=== PATIENT | female | born 1950 | race African-American/Black ===

== ENCOUNTER 2022-09-20 13:25 | Inpatient (IN) | payer OTHER ==
[~2022-09-20] VITALS: Ht 185.4 cm; Wt 72.8 kg
[2022-09-20] MEDS ORDERED: ISOVUE-370 76% 100ML VIAL As Ordered ONE (13:59)
[2022-09-20 14:05] LABS: BASO % 0.4 % (0.0-1.0); EOS # 0.1 10^3/uL (0.0-0.5); EOS % 2.5 % (0.0-3.0); HEMATOCRIT 38.3 % (36.0-47.0); HEMOGLOBIN 12.3 g/dl (12.0-15.5); LYMPH # 1.8 10^3/uL (1.5-5.0); LYMPH % 35.2 % (24.0-44.0); MEAN CORPUSCULAR HGB CONC 32.1 g/dl (32.0-36.5); MONO # 0.5 10^3/uL (0.0-0.8); MONO % 10.1 % (2.0-8.0); NEUTROPHILS # 2.7 10^3/uL (1.5-8.5); NEUTROPHILS % 51.4 % (36.0-66.0); PLATELET COUNT, AUTOMATED 215 10^3/uL (150-450); WHITE BLOOD COUNT 5.2 10^3/uL (4.0-10.0)
[2022-09-20 14:16] LABS: INR 0.92; PROTHROMBIN TIME 12.6 SECONDS (12.5-14.5)
[2022-09-20 14:17] LABS: PARTIAL THROMBOPLASTIN TIME 26.5 SECONDS (24.8-34.2)
[2022-09-20 14:34] LABS: BLOOD UREA NITROGEN 14 MG/DL (9-23); CALCIUM LEVEL 9.1 MG/DL (8.3-10.6); CARBON DIOXIDE LEVEL 34 MMOL/L (20-31); CHLORIDE LEVEL 101 MMOL/L (98-107); CK-MB VALUE MASS < 1.0 NG/ML (<3.6); CPK CREATINE PHOSPHOKINASE 135 U/L (34-145); CREATININE FOR GFR 1.01 MG/DL (0.55-1.30); GLOMERULAR FILTRATION RATE 57.2 (>39); GLUCOSE, FASTING 76 MG/DL (74-106); MB/CK RELATIVE INDEX 0.74 (< OR =4); POTASSIUM SERUM 4.1 MMOL/L (3.5-5.1); SODIUM LEVEL 139 MMOL/L (136-145)
[2022-09-20] MEDS ORDERED: ACET1TAB55 PO (15:20)
[2022-09-20] MEDS ORDERED: LOSA25TA13 PO (15:20)
[2022-09-20] MEDS ORDERED: ROSU10TA6 PO (15:20)
[2022-09-20] MEDS ORDERED: ECOT81TA5 PO (15:20)
[2022-09-20] MEDS ORDERED: DICL1GEL3 TOP (15:20)
[2022-09-20] MEDS ORDERED: MELO10CA2 PO (15:20)
[2022-09-20] MEDS ORDERED: hydrALAZINE 20MG/ML 1ML VIAL IV PRN (15:55)
[2022-09-20] MEDS ORDERED: ACETAMINOPHEN TAB 650MG DOSE (2X325MG) PO PRN (15:55)
[2022-09-20 16:21] LABS: CHOLESTEROL LEVEL 130 MG/DL (<200); CHOLESTEROL RISK RATIO 3.38 (<5); HDL CHOLESTEROL 38.4 MG/DL (>40); LDL CHOLESTEROL 65.4 MG/DL (<100); NON-HDL-C 91.6 MG/DL; TRIGLYCERIDES LEVEL 131 MG/DL (<150)
[2022-09-20 16:22] LABS: RSV AMPLIFICATION NEGATIVE (NEGATIVE)
[2022-09-20] MEDS ORDERED: MELO15TA28 PO (17:15)
[2022-09-20] MEDS ORDERED: HYDR-3490 PO (17:17)
[2022-09-20] MEDS ORDERED: HOME MED LIST COMPLETE! XX SCH (17:40)
[2022-09-20 18:10] LABS: HEMOGLOBIN A1c 5.3 % (4.0-6.0)
[2022-09-20 21:07] VITALS: BP 182/88
[2022-09-20 23:17] VITALS: BP 135/61
[2022-09-21 04:00] VITALS: BP 128/64
[2022-09-21 06:20] LABS: HEMATOCRIT 37.6 % (36.0-47.0); HEMOGLOBIN 11.9 g/dl (12.0-15.5); MEAN CORPUSCULAR HEMOGLOBIN 27.6 pg (27.0-33.0); MEAN CORPUSCULAR HGB CONC 31.6 g/dl (32.0-36.5); MEAN CORPUSCULAR VOLUME 87.2 fl (80.0-96.0); PLATELET COUNT, AUTOMATED 224 10^3/uL (150-450); RED BLOOD COUNT 4.31 10^6/uL (4.00-5.40); WHITE BLOOD COUNT 4.9 10^3/uL (4.0-10.0)
[2022-09-21 06:47] LABS: ALBUMIN 3.8 G/DL (3.2-5.2); ALKALINE PHOSPHATASE 57 U/L (46-116); ALT/SGPT 43 U/L (7.0-40); AST/SGOT 30 U/L (<34); BILIRUBIN,TOTAL 0.4 MG/DL (0.3-1.2); BLOOD UREA NITROGEN 12 MG/DL (9-23); CALCIUM LEVEL 9.1 MG/DL (8.3-10.6); CARBON DIOXIDE LEVEL 33 MMOL/L (20-31); CHLORIDE LEVEL 101 MMOL/L (98-107); CREATININE FOR GFR 1.03 MG/DL (0.55-1.30); GLOMERULAR FILTRATION RATE > 60.0 (>39); GLUCOSE, FASTING 81 MG/DL (74-106); MAGNESIUM LEVEL 2.1 MG/DL (1.8-2.4); POTASSIUM SERUM 4.2 MMOL/L (3.5-5.1); SODIUM LEVEL 139 MMOL/L (136-145); TOTAL PROTEIN 6.5 G/DL (5.7-8.2)
[2022-09-21 07:55] VITALS: BP 146/68
[2022-09-21] MEDS: LOSARTAN 25 MG TAB PO SCH (09:48)
[2022-09-21] MEDS: ASPIRIN 81MG CHEW TABLET PO SCH (09:48)
[2022-09-21] MEDS: ROSUVASTATIN 10 MG TAB (CRESTOR) PO SCH (09:48)
[2022-09-21 12:20] VITALS: BP 130/65
[2022-09-21 19:45] VITALS: BP 127/64
[2022-09-22 00:01] VITALS: BP 107/55
[2022-09-22 03:50] VITALS: BP 125/62
[2022-09-22 07:35] VITALS: BP 122/61
[2022-09-22] MEDS: ASPIRIN 81MG CHEW TABLET PO SCH (08:38)
[2022-09-22 08:39] VITALS: BP 122/61
[2022-09-22] MEDS: ROSUVASTATIN 10 MG TAB (CRESTOR) PO SCH (08:39)
[2022-09-22] MEDS: LOSARTAN 25 MG TAB PO SCH (08:39)
[2022-09-22] MEDS ORDERED: ROSU10TA6 PO (10:54)
[2022-09-22] MEDS ORDERED: ASPI-1 PO (10:54)
== END 2022-09-22 13:23 | disposition home or self-care (01) | DRG 47 ==
LOC: EDBD 13:25 → M ED 13:25 → M ED INP 15:54 → ENRESERV 20:03 → M PCU 21:09
PROVIDERS: ADMIT Family Medicine; ATTEND Family Medicine
PROC: B246ZZZ Ultrasonography of Right and Left Heart (ICD-10-PCS; principal; 2022-09-20)
DX: G45.9 Transient cerebral ischemic attack, unspecified (principal); I69.351 Hemiplegia and hemiparesis following cerebral infarction affecting right dominant side; I10 Essential (primary) hypertension; I16.9 Hypertensive crisis, unspecified; R26.89 Other abnormalities of gait and mobility; R47.81 Slurred speech; R53.1 Weakness; Z79.82 Long term (current) use of aspirin; Z79.899 Other long term (current) drug therapy; Z20.822 Contact with and (suspected) exposure to COVID-19